=== PATIENT | female | born 1945 | race Caucasian/White ===

== ENCOUNTER 2020-02-03 14:15 | Outpatient (RCR) | payer MEDICARE, SELFPAY ==
--- NOTE | 2019-12-31 15:47 | PTOPEVAL ---
Thank you for referring this patient to [facility]. Please review, sign, date and return this plan of care SUSHANT. I agree with and certify that the following plan of care is medically necessary. Referring Physician Date Attending Provider: Elaine Ba, HUMANITIES PROFESSOR-C Evaluation Hx Back Pain Yes Hx Spinal Surgery Yes: spinal fusion; pain pump placed/removed Pain History Has Past Pain Affected Your Daily Life Yes History of Pain Pump Yes: removed Evaluation Information Diagnosis generalized weakness Subjective Information Suri is here today following Query Text:As Reported By Patient/ placement of a pain pump in 08/2019 Family By that evening her legs had gone numb. They took the pain pump out, but of use her legs has not returned. Prior to this incident she was 100% independent. 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 she can propel the w/c, but is faster with assist. she dresses independently and bathes independently. 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 Prior Level of Function Activity Level (Last 3 Months) Hand Dominance Right Cooking Yes Cleaning Yes Laundry Yes Shopping Yes Driving Yes Home Setting Home Type House,Single Level Environmental Barriers Ramp Living Situation With Spouse Support Available Local Family Support Cargiver Responsibilities Comment prior to incident, Suri was 100% independent and driving. Mobility Assistive Devices (Used Last 3 Wheelchair, Manual Months) Bathroom Environment Shower, Curtain Bathing Equipment Grab Bars,Tub Seat With Back Pain Scale Spine, Lumbar Reported Pain Level 4 Pain Description Aching Current Pain Intensity 4 Lowest Pain Intensity 2 Greatest Pain Intensity 7 Other Pain Aggravating Factors alot of moving, transfering in/out of wheelchair Lower Extremity Range of Motion General Lower Extremity Range of Motion: WNL/Left,WNL/Right Lower Extremity Muscle Strength Testing Hip Strength Bilateral Hip Flexion Strength 4- Good - Hip Extension Strength 3+ Fair + Hip Abduction Strength 3- Fair - Knee Strength Bilateral Knee Flexion Strength 3+ Fair + Knee Extension Strength 3 Fair Ankle Strength Bilateral Ankle Dorsiflexion Strength 3+ Fair + Ankle Plantarflexion Strength 4- Go
--- NOTE | 2020-01-27 17:18 | PTOPEVAL ---
PHYSICAL THERAPY PLAN OF CARE UPDATE AND PROGRESS REPORT Thank you for referring this patient to [facility]. I recommend continuing physical therapy with Suri with plan to participate in 1x/week land and 1x/week pool therapy for 4 weeks. Please review, sign, date and return this plan of care SUSHANT. I agree with and certify that the following plan of care is medically necessary. Referring Physician Date Attending Provider: Elaine Ba, ACCOUNT SUPPORT ANALYST-C Re-evaluation Diagnosis generalized weakness Cause insidious Subjective Information Suri reports today that she Query Text:As Reported By Patient/ does not feel like anything Family has really changed, but also describes that she had an opportunity to walk with the walker in her house with her following with the wheelchair behind her. She feels as though she has a balance problem and that her legs don't always feel weak but she feels like she will lose her balance. Feels as though over all her back is feeling much better, although she did have a really bad night. Reported Pain Level 5 Pain Description Aching,Soreness Pain Frequency Chronic Pain Aggravating Factors Weight Bearing/Standing Hip Strength Bilateral Hip Flexion Strength 4 Good Hip Extension Strength 3+ Fair + Hip Abduction Strength 3- Fair - Knee Strength Right Knee Flexion Strength 4- Good - Knee Extension Strength 4- Good - Left Knee Flexion Strength 3+ Fair + Knee Extension Strength 4 Good Ankle Strength Bilateral Ankle Dorsiflexion Strength 3+ Fair + Ankle Plantarflexion Strength 4- Good - Balance Assessment Balance Screen Static Sit 30 Seconds without UE Support Yes - Eyes Open Static Sit 30 Seconds without UE Support Yes - Eyes Closed Static Sit with Nudge without UE Support Yes Dynamic Turn to Look Over Both Shoulders Yes without UE Support Dynamic Bend Forward to Touch Floor Yes without UE Support Static Stand 30 Seconds without UE Yes Support - Eyes Open Static Stand 10 Seconds without UE No Support - Eyes Closed Static Stand with Nudge without UE No Support/Device Dynamic Turn to Look Over Both Shoulders No without UE Support One Full Step Forward/Back without UE No
--- NOTE | 2020-02-10 09:40 | PCPTNOTE ---
PHYSICAL THERAPY DISCHARGE NOTE Attending Provider: Elaine Ba, FELT HAT STEAMER-C Patient:Suri Crews Date of :1945 Suri cancelled her remaining appointments due to COVID-19 precautions. Her last assessment was on 01/27/2020. Her current account will be discharged at this time. If she requires further care in the future, we will be happy to work with her again. The goals have been partially achieved. Thank you for referring this patient to [facility]. Please review, sign, date and return this discharge summary SUSHANT. I have been updated about the patient's current status and I agree with discharge from the above service at this time. Referring Physician Date
== END 2020-02-10 13:53 | disposition home or self-care (01) ==
LOC: ANHPT 14:15
PROVIDERS: PCP Family Medicine; Visit Provider Nurse Practitioner Family
DX: M62.81 Muscle weakness (generalized) (principal)
CPT/HCPCS: 97110; 97113; 97140; 97162

== ENCOUNTER 2020-07-08 11:15 | Outpatient (RCR) | payer MEDICARE, SELFPAY ==
--- NOTE | 2020-05-27 10:22 | PTOPEVAL ---
PHYSICAL THERAPY EVALUATION AND PLAN OF CARE Thank you for referring Suri Crews to [facility]. I recommend Suri participate in physical therapy 2x/week for 4-8weeks. Please review, sign, date and return this plan of care SUSHANT. I agree with and certify that the following plan of care is medically necessary. Referring Physician Date Attending Provider: Blu Hunter PA-C Evaluation Diagnosis unsteadiness on feet Onset 08/2019 Cause insidious Subjective Information Suri has returned to therapy Query Text:As Reported By Patient/ after a hiatus due to COVID-19. Family she reports worse pain and she reports that her mobility is getting worse. States that when pain is too bad, she takes a pain pill. States that the she does not do any exercises or stretches. Reports that her legs are kind of numb -main pain is in her back. Pain Assessment Timing of Pain Assessment Timing of Pain Assessment Assessment Pain Scale Pain Scale Used Numeric (1 - 10) Self Report Pain Assessment Back Reported Pain Level 6 Pain Description Aching Pain Frequency Chronic,Continuous Lowest Pain Intensity 4 Greatest Pain Intensity 8 Pain Aggravating Factors Other Pain Aggravating Factors Other Pain Aggravating Factors getting into and out of car Pain Behaviors None Pain Relief Interventions Used By Medication Patient Pain Score Pain Score 6: Self Report Lower Extremity Muscle Strength Testing Hip Strength Bilateral Hip Flexion Strength 4 Good Knee Strength Bilateral Knee Flexion Strength 4+ Good + Knee Extension Strength 3+ Fair + Balance Assessment Bush Balance Assessment Sitting to Standing Independent w/Hands Unsupported Stance Ability 30 seconds Sitting Unsupported, Feet on Floor Safely- 2 minutes Standing to Sitting Assist, Control w/Hands Transfer Ability Safely, Hand Use Unsupported Stance- Eyes Closed 3 seconds Unsupported Stance- Feet Together Supervision to maintain Reaching Forward while Standing Safely, 2 inches mail delivery supervisor Object From Floor Requires Assistance Look Behind Shoulder - Standing Supervision w/Turning Turning 360 Degrees Requires Assistance Unsupported Stance, Alternating Feet on Assist to Prevent Fall Stair Unsupported Tandem Stance Assist to Step-15 seconds Unilateral Leg Stance Unable,assist to not
--- NOTE | 2020-06-12 15:04 | PCPTNOTE ---
Patient called & cancelled scheduled appointment this date due to note feeling well.
--- NOTE | 2020-06-26 13:21 | PTOPEVAL ---
PHYSICAL THERAPY PLAN OF CARE UPDATE AND PROGRESS REPORT Thank you for referring Suri Crews to [facility] Suri is scheduled to continue 2x/week for 4 weeks. Please review, sign, date and return this plan of care SUSHANT. I agree with and certify that the following plan of care is medically necessary. Referring Physician Date Attending Provider: Blu Hunter PA-C Progress Diagnosis unsteadiness on feet Onset 08/2019 Cause insidious Subjective Information Suri states that she is Query Text:As Reported By Patient/ feeling better today, no Family specific reason. Does her exercises sporadically. Self Report Pain Assessment Back Reported Pain Level 4 Pain Description Aching Pain Frequency Chronic,Continuous Pain Behaviors None Hip Strength Bilateral Hip Flexion Strength 4+ Good + Knee Strength Bilateral Knee Flexion Strength 4+ Good + Knee Extension Strength 4- Good - Balance Assessment [facility] Balance Evaluation Total Score 29/56 Comments 1month ago = 24/56points Timed Up and Go Test (TUG) (Seconds) 21 Assistive Devices Walker, Wheeled Comments 1 month ago: 27seconds 5 Time Sit to Stand Time in Seconds 18.05 5 Time Sit to Stand Comments with armrests Query Text:Normative Data: If Greater Than 15 Seconds, 74% Increase Risk for Recurrent Falls Gait Assessment Total Distance Walked (feet) 256 2 Minute Walk Gait Speed Score 2.13ft/sec Number of Breaks Required 0 2 Minute Walk Test Comments 1month ago: 113 in 1min 16seconds PT Clinical Summary Suri is a 74 yo female participating in physical therapy for 4weeks with impaired balance and endurance following spinal fusion. She presents today with increase in her balance tests and endurance tests. She demonstrates mild strength increases to MMT. I recommend participating in physical therapy 2x/week for 4 more weeks. PT Services Indicated Yes Rehabilitation Potential Good Patient/Caregiver's Personal Goals for optimal goal is to decrease Rehabilitation pain, but stated that being able to walk with walker
--- NOTE | 2020-07-06 13:59 | PCPTNOTE ---
Patient called & cancelled scheduled appointment this date due to patient not feeling well.
--- NOTE | 2020-07-06 14:00 | PCPTNOTE ---
LATE NOTE: Patient called & cancelled scheduled appointments on 06/29 and 07/03 stating she is unable to attend these appointments.
--- NOTE | 2020-07-13 10:50 | PCPTNOTE ---
Patient called & cancelled scheduled appointments for this week. Stated unsure if she wants to continue therapy session due to not feeling well, sick.
--- NOTE | 2020-07-16 18:11 | PCPTNOTE ---
PHYSICAL THERAPY DISCHARGE NOTE Attending Provider: Blu Hunter PA-C Patient:Suri Crews Date of :1945 Suri called and canelled her remaining appointments. No specific reason provided. She will be discharged at this time. Patient?s initial visit was on 05/27/2020 and had a total of 9 visits. The goals have been partially met. Thank you for referring this patient to [facility]. Please review, sign, date and return this discharge summary SUSHANT. I have been updated about the patient's current status and I agree with discharge from the above service at this time. Referring Physician Date
== END 2020-07-21 10:32 | disposition home or self-care (01) ==
LOC: ANHPT 11:15
PROVIDERS: PCP Family Medicine; Visit Provider Physician Assistant
DX: R26.81 Unsteadiness on feet (principal)
CPT/HCPCS: 97110; 97140; 97162

== ENCOUNTER 2020-08-28 09:22 | Outpatient (CLI) | payer MEDICARE, SELFPAY ==
--- NOTE | ~2020-08-28 | NM_ITS ---
EXAMINATION: NM luciano stress w perfusion DATE: 08/28/2020 12:01 INDICATION: Chest pain. TECHNIQUE: Rest images were obtained following intravenous administration of 10.2 mCi Tc99m tetrofosm in (Myoview). The patient was infused intravenously with Lexiscan (regadenoson). Then, 30.2 mCi Tc99m tetrofosmin (Myoview) was administered intravenously, and stress images were obtained. Data was gris nstructed into short axis and horizontal and vertical long axis SPECT images. Gated SPECT images were also obtained. COMPARISON: Chest CT 07/17/2015 FINDINGS: There is no definite reversible or fixed perfusion abnormality to suggest ischemia or infar ction. There is no segmental wall motion abnormality. Left ventricular ejection fraction measures 6 2%. IMPRESSION: 1. No definite ischemia or infarct. 2. Normal left ventricular ejection fraction measuring 62%. Reviewed, dictated and finalized at location B.
--- NOTE | 2020-08-28 09:47 | EST_ITS ---
Patient Info Name: Suri Crews Age: 74 years : 1945 Gender: Female Ht: 64 in Wt: 200 lbs BSA: 2.06 m2 Exam Date: 08/28/2020 10:47 AM Exam Location: [facility] Stress Patient Status: Outpatient Admit Date: 08/28/2020 Staff Ordering Physician: Blu Hunter PA-C Attending Provider: Blu Hunter PA-C Exercise Technologist: Angi Akers RDCS Exercise Physician: Josias Ventura DO Exam Type: CA stress luciano w NM Study Info Indications R07.89 - Other chest pain A regadenoson stress test was performed. Summary 1. 1. Negative lexiscan stress test for ischemic ST changes by ECG criteria. 2. 2. Stable hemodynamics throughout the test. 3. 3. Nuclear scan to follow and will be reported separately. Please correlate with it. 4. 4. Patient informed of the above results. Protocol: Lexiscan Stress ECG Details Stage: REST Duration (min): 6 min : 22 sec HR (bpm): 87 SBP (mmHg): 120 DBP (mmHg): 82 Stage: REST Duration (min): 12 min : 8 sec HR (bpm): 87 SBP (mmHg): 120 DBP (mmHg): 82 Stage: STAGE 1 Duration (min): 0 min : 59 sec HR (bpm): 92 SBP (mmHg): 129 DBP (mmHg): 84 Stage: RECOVERY Duration (min): 1 min : 0 sec HR (bpm): 100 SBP (mmHg): 117 DBP (mmHg): 80 Stage: RECOVERY Duration (min): 2 min : 0 sec HR (bpm): 93 SBP (mmHg): 117 DBP (mmHg): 80 Stage: RECOVERY Duration (min): 3 min : 0 sec HR (bpm): 92 SBP (mmHg): 119 DBP (mmHg): 79 Stage: RECOVERY Duration (min): 3 min : 10 sec HR (bpm): 83 SBP (mmHg): 119 DBP (mmHg): 79 Rest HR: 87 bpm Peak HR: 102 bpm Rest Sys BP: 120 mmHg Peak Sys BP: 129 mmHg Max Pred HR: 147 bpm % Max Pred HR: 69 % Target HR: 125 bpm Max RPP: 13,158 bpm*mmHg Termination Reason: Completed protocol Cardiac Symptoms: Shortness of breath Total Time: 1 min : 0 sec Rest Bassett BP: 82 mmHg Peak Bassett BP: 84 mmHg Total Dose: 0.4 mg Resting ECG Sinus rhythm, low voltage in diffuse leads, IRBBB, anteroseptal infarct and inferior infarct, age indeterminate. Stress ECG No ST changes. Arrhythmias None. Report Signatures
== END 2020-08-28 09:23 | disposition home or self-care (01) ==
LOC: ANHCARD 09:28
PROVIDERS: PCP Family Medicine; Visit Provider Physician Assistant
DX: R07.89 Other chest pain (principal)
CPT/HCPCS: 78452; 93017; A9502; J2785

== ENCOUNTER → 2022-01-27 13:35 | Outpatient (CLI) | payer MEDICARE, SELFPAY ==
--- NOTE | ~2022-01-27 | XR_ITS ---
EXAMINATION: XR wrist LT w scaphoid DATE: 01/27/2022 14:01 INDICATION: Left wrist pain. TECHNIQUE: 5 views of left wrist were obtained. COMPARISON: None. 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 There is severe osteoarthritis of radioscaphoid joint and lunate-capitate and lunate-hamate joints. There is mild os teoarthritis of triscaphe joint and severe osteoarthritis of first carpometacarpal joint. There is mi ld osteoarthritis of second metacarpophalangeal joint. There are punctate calcifications at the radio carpal compartment. IMPRESSION: 1. 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 Reviewed, dictated and finalized at location A. NE BOSS
== END ==
PROVIDERS: PCP Family Medicine; Visit Provider Physician Assistant Medical
DX: M25.532 Pain in left wrist (principal); M19.032 Primary osteoarthritis, left wrist; M25.832 Other specified joint disorders, left wrist
CPT/HCPCS: 73110

== ENCOUNTER 2022-05-16 12:33 | Outpatient (CLI) | payer MEDICARE, SELFPAY ==
--- NOTE | ~2022-05-16 | XR_ITS ---
XR chest 2V DATE: 05/16/2022 13:14 INDICATION: Cough TECHNIQUE: AP and lateral views COMPARISON: 09/2016 PA and lateral chest FINDINGS: Normal heart size. Mild atelectasis in the lower lung zones. Chronic elevation of the right leaf of the diaphragm. Normal heart size. Mild aortic tortuosity. No pulmonary vascular congestion or pleural effusion or pn eumothorax. No hilar or mediastinal enlargement. Again noted is anterior mid and lower cervical spine surgical fusion and right glenohumeral arthropla sty. Old healed fracture deformity of the midshaft of the left clavicle. Osteophytic change of the le ft glenohumeral joint. Probable partial resection of the lateral aspect of the left clavicle. Status post posterior lower thoracic and lumbar surgical fusion with 2 sets of bilateral pedicle scre ws and rods from T10 into the lumbar area, new since 09/23/2016 Status post cholecystectomy. IMPRESSION: Mild atelectasis in the lower lung zones Status post anterior cervical spine surgical fusion at right glenohumeral arthroplasty Status post posterior lower thoracic and lumbar surgical fusion, new since 09/23/2016 Status post cholecystectomy Reviewed, dictated and finalized at location B. IMPRESSION: Mild atelectasis in the lower lung zones Status post anterior cervical spine surgical fusion at right glenohumeral arthr oplasty Status post posterior lower thoracic and lumbar surgical fusion, new since 09/23 Status post cholecystectomy
== END 2022-05-16 12:34 | disposition home or self-care (01) ==
PROVIDERS: PCP Family Medicine; Visit Provider Physician Assistant
DX: R05.9 Cough, unspecified (principal); J98.11 Atelectasis; Z98.1 Arthrodesis status; Z90.49 Acquired absence of other specified parts of digestive tract
CPT/HCPCS: 71046

== ENCOUNTER 2022-08-24 11:00 | Outpatient (RCR) | payer MEDICARE, SELFPAY ==
--- NOTE | 2022-07-22 11:46 | PTOPEVAL1 ---
Evaluation Information Assessment Status Evaluation Diagnosis dizziness Onset May 2022 Subjective Information Dizziness started a few months ago and has gotten worse; Reported Pain Level Pain Score 0: Self Report Additional Pain Score Comments area over R religion, behind eye; poking and some puss/watering from eye; little throbbing; range 0-2/10 Assessment PT Clinical Summary Suri has the diagnosis of dizziness. She reports onset a few months ago, and has not had vestibular issues in the past. Her history does include risk factors of: multiple meds, fall with hitting her head, issues with ear drum perforation, vision and hearing issues--glasses and hearing aides used, recent infection, R eye watering and allergy issues. With the evaluation, [place] test was positive to the R for anterior/posterior BPPV. Education was provided to pt on vestibular system and BPPV basics. Skilled PT services are indicated for clearing of her BPPV and further testing of her vestibular system as indicated, with education for home exercises and postioning. Plan of Care Interventions Neuro Re-education,Patient/Caregiver Education, Therapeutic Activities,Therapeutic Exercise PT Services Indicated Yes Treatment Frequency and 1-2x/wk for 5 weeks, depending upon the severity Duration of her vestibular s/s These treatments will address the objective and functional deficits as defined above. The patient will be advanced safely and appropriately in order for the patient to progress towards his/her prior level of function. Additional exercises will be introduced and as well as a comprehensive home exercise program upon discharge, if needed, ?to ensure carryover of functional gains achieved in the clinic. This treatment plan has been reviewed and agreement upon by the patient.
--- NOTE | 2022-08-24 11:35 | PTOPDC ---
Assessment and note entered by Rebecca Costello, PT Evaluation Information Assessment Status Discharge Diagnosis dizziness Onset May 2022 Subjective Information have only had about one dizzy spell per week, when lying in bed and roll over in bed; neck is better, is doing good; Reported Pain Level Pain Score Self Report Additional Pain Score Comments no neck pain or headaches lately; does have pain in her back and fatigued from not sleeping well last night; Assessment PT Clinical Summary Suri has received 5 PT sessions for vestibular therapy/dizziness. She has improved with reporting only having dizziness about 1x/week when rolling over in bed, lasting about 1 minute. Education completed for cervical stretching and HEP, safety with mobility and dizziness. Discharge PT services. Plan of Care PT Services Indicated No
== END 2022-10-06 13:47 | disposition home or self-care (01) ==
LOC: ANHPT 11:00
PROVIDERS: PCP Emergency Medicine; Referring Provider Emergency Medicine; Visit Provider Emergency Medicine
DX: R42 Dizziness and giddiness (principal)
CPT/HCPCS: 97161; 97530

== ENCOUNTER 2022-12-15 00:20 | Day surgery (SDC) | payer MEDICARE, SELFPAY ==
[2022-11-28 14:58] VITALS: BMI 32.7
[2022-12-15 08:46] VITALS: BP 131/88; PULSE 91; RESP 17; TEMP 36.4; O2SAT 97; BMI 31.5
[2022-12-15] MEDS: LACTATED RINGERS 1,000 ML 150 ML IV CONT (08:54)
--- NOTE | 2022-12-15 09:22 | WPDANESEPPF ---
Anes - Initial Pre Proc Eval Procedure: Operation Date: 12/15/22 09:30 Proposed Procedures p Esophagogastroduodenoscopy - Chris Shultz MD Date/Time: 12/15/22 09:22 Surgeon: Chris Shultz MD Pre Op Diagnosis: epigastric pain Patient Data Age: 77 Gender: F Height: 1.63 m Weight: 83.4 kg Last Vital Signs Temp 97.6 F 12/15/22 08:46 Pulse 91 12/15/22 08:46 Resp 17 12/15/22 08:46 BP 131/88 12/15/22 08:46 Pulse Ox 97 12/15/22 08:46 O2 Del Method Room Air 12/15/22 08:46 Allergies Allergy/AdvReac Type Severity Reaction Status Date / Time No Known Allergies Allergy Verified 12/15/22 08:44 Home Medications Medication Instructions Recorded Confirmed Type cholecalciferol (vitamin D3) 50 50 mcg PO DAILY 08/09/22 12/15/22 History mcg (2,000 unit) capsule ginkgo biloba leaf extract 60 mg 60 mg PO BID 08/09/22 12/15/22 History capsule clonazepam 0.5 mg tablet 0.5 mg PO QHS #90 tabs 11/15/22 12/15/22 Rx allopurinol 300 mg tablet 300 mg PO DAILY 11/28/22 12/15/22 History amlodipine 5 mg tablet 5 mg PO DAILY 11/28/22 12/15/22 History baclofen 10 mg tablet 10 mg PO HS 11/28/22 12/15/22 History duloxetine 60 mg capsule,delayed 60 mg PO DAILY 11/28/22 12/15/22 History release gabapentin 300 mg capsule 600 mg PO HS 11/28/22 12/15/22 History hydrochlorothiazide 50 mg tablet 50 mg PO DAILY 11/28/22 12/15/22 History melatonin 10 mg tablet 10 mg PO HS 11/28/22 12/15/22 History multivit with 1 tablet PO DAILY 11/28/22 12/15/22 History ghcinmns-ntme-DH-lutein 8 mg iron-400 mcg-300 mcg tablet (Centrum Silver Women) omega-3 fatty acids-vitamin E 1 cap PO DAILY 11/28/22 12/15/22 History 1,000 mg capsule simvastatin 40 mg tablet 40 mg PO DAILY 11/28/22 12/15/22 History telmisartan 80 mg tablet 80 mg PO DAILY 11/28/22 12/15/22 History trazodone 50 mg tablet 50 mg PO HS 11/28/22 12/15/22 History vitamin B complex 1 tablet PO DAILY 11/28/22 12/15/22 History Patient hx anesthesia problems: none Family hx anesthesia problems: none Results Review: All pre-operative results and documents have been reviewed as part of the pre-operative evaluation. PMFSH Past Medical History Medical History Black stool Family History Family History Mother Family history of elevated blood lipids Other Family history of cardiovascular disease Hypertension Social History Social History (Updated 11/08/22 @ 15:08 by Monique Hopson MA) Smoking status: Former smoker Tobacco type: cigarettes Alcohol intake: never Substance use type: does not use Lack of Transportation: No Lack of Food: Never True Current Housing: I Have Housing Concerned About Future Housing: No Difficulty Paying Gas/Electric Bills: No Difficulty Paying for Meds: No Currently Unemployed: No Education: High School Diploma/GED Difficulty w/ Childcare or Family Care: No Living arrangements: with family Spiritual care concerns: No Anes - Eval Final PreProcedure Day of Procedure 12/15/22 09:22 Patient weight: obese Heart: regular rate and rhythm Lungs: clear to auscultation Airway: Mallampati scale class II Neurological: alert and oriented Last oral intake: >/= 8 hours ASA classification: III Emergent: no Anesthetic plan: proceed Anesthesia type and monitoring: general GIVS and standard monitoring Results Review: All pre-operative results and documents have been reviewed as part of the pre-operative evaluation. Informed Consent: The patient's anesthetic plan and its attendant risks and benefits were discussed with the patient/family/POA. Questions were solicited and answers provided to the satisfaction of the patient/family/POA.
--- NOTE | 2022-12-15 09:23 | PM.HPGS ---
History of Present Illness History of Present Illness Consent: Risks, benefits, and alternatives have been discussed and questions answered. Patient agrees to proceed with procedure. Chief complaint: epigastric pain Narrative: Suri Crews is a 77 year old female Presents for EGD. Patient has a history of spinal cord injury several years ago. She reports partial paresis to the lower extremities. Patient reports for quite some time has epigastric discomfort in the upper portion of her abdomen she states a gurgles. Sometimes she feel nauseated and bloated. She has difficulty describing the sensation. She does report poor bowel habits but does not correlate this with her discomfort. She states the abdominal discomfort comes and goes intermittently. Not particularly related to diet nor intake as well. An EGD is requested to assess more thoroughly. Review of Systems Review of Systems: Review of systems noncontributory. [facility] Past Medical History Medical History Black stool Family History Family History Mother Family history of elevated blood lipids Other Family history of cardiovascular disease Hypertension Social History Social History (Updated 11/08/22 @ 15:08 by Monique Hopson MA) Smoking status: Former smoker Tobacco type: cigarettes Alcohol intake: never Substance use type: does not use Lack of Transportation: No Lack of Food: Never True Current Housing: I Have Housing Concerned About Future Housing: No Difficulty Paying Gas/Electric Bills: No Difficulty Paying for Meds: No Currently Unemployed: No Education: High School Diploma/GED Difficulty w/ Childcare or Family Care: No Living arrangements: with family Spiritual care concerns: No Meds Home Medications and Allergies Home Medications Medication Instructions Recorded Confirmed Type cholecalciferol (vitamin D3) 50 50 mcg PO DAILY 08/09/22 12/15/22 History mcg (2,000 unit) capsule ginkgo biloba leaf extract 60 mg 60 mg PO BID 08/09/22 12/15/22 History capsule clonazepam 0.5 mg tablet 0.5 mg PO QHS #90 tabs 11/15/22 12/15/22 Rx allopurinol 300 mg tablet 300 mg PO DAILY 11/28/22 12/15/22 History amlodipine 5 mg tablet 5 mg PO DAILY 11/28/22 12/15/22 History baclofen 10 mg tablet 10 mg PO HS 11/28/22 12/15/22 History duloxetine 60 mg capsule,delayed 60 mg PO DAILY 11/28/22 12/15/22 History release gabapentin 300 mg capsule 600 mg PO HS 11/28/22 12/15/22 History hydrochlorothiazide 50 mg tablet 50 mg PO DAILY 11/28/22 12/15/22 History melatonin 10 mg tablet 10 mg PO HS 11/28/22 12/15/22 History multivit with 1 tablet PO DAILY 11/28/22 12/15/22 History hxpmpbxi-noxv-BI-lutein 8 mg iron-400 mcg-300 mcg tablet (Centrum Silver Women) omega-3 fatty acids-vitamin E 1 cap PO DAILY 11/28/22 12/15/22 History 1,000 mg capsule simvastatin 40 mg tablet 40 mg PO DAILY 11/28/22 12/15/22 History telmisartan 80 mg tablet 80 mg PO DAILY 11/28/22 12/15/22 History trazodone 50 mg tablet 50 mg PO HS 11/28/22 12/15/22 History vitamin B complex 1 tablet PO DAILY 11/28/22 12/15/22 History Allergies Allergy/AdvReac Type Severity Reaction Status Date / Time No Known Allergies Allergy Verified 12/15/22 08:44 Vital Signs Vital Signs - 24 hr 12/15/22 08:46 Temperature 97.6 F Pulse Rate 91 Respiratory Rate 17 Blood Pressure 131/88 Pulse Oximetry 97 Oxygen Delivery Room Air Exam Narrative: Physical exam reveals patient to be alert. Vital signs stable. HEENT exam is unremarkable. Patient is anicteric. Lungs are clear to auscultation and percussion. Heart is without murmur or extra sounds. Abdomen bowel sounds present soft nontender with no organomegaly. She has weakness in her lower extremities. Assessment and Plan Assessment and plan (1) Epigastric pain: Code(s): R10.13
[2022-12-15 09:46] VITALS: BP 116/91; PULSE 88; RESP 20; O2SAT 99
[2022-12-15 09:56] VITALS: BP 112/68; PULSE 80; RESP 19; O2SAT 100
[2022-12-15 10:06] VITALS: BP 127/75; PULSE 76; RESP 21; O2SAT 96
== END 2022-12-15 10:20 | disposition home or self-care (01) ==
PROVIDERS: PCP Emergency Medicine; Visit Provider Internal Medicine Gastroenterology
PROC: 0DJ08ZZ Inspection of Upper Intestinal Tract, Via Natural or Artificial Opening Endoscopic (ICD-10-PCS; CPT 43235; principal; 2022-12-15 09:30)
DX: R10.13 Epigastric pain (principal); Q39.4 Esophageal web; R53.1 Weakness; E11.9 Type 2 diabetes mellitus without complications; Z87.891 Personal history of nicotine dependence
CPT/HCPCS: 43239; 43450; 87081; J2704; J7120

== ENCOUNTER 2023-01-21 14:44 | Outpatient (CLI) | payer MEDICARE, SELFPAY ==
--- NOTE | ~2023-01-21 | XR_ITS ---
EXAMINATION: XR shoulder LT min 2V INDICATION: Left shoulder pain TECHNIQUE: Four views of the left shoulder are submitted. COMPARISON: None FINDINGS: Changes of healed left clavicle fracture are noted. No acute fracture is identified. There is moderate to severe osteoarthritis of the glenohumeral joint. There is moderate osteoarthritis of t he acromioclavicular joint. There are partially imaged changes of spinal fusion. Surgical clips in th e right upper quadrant are likely from prior cholecystectomy. Soft tissues are unremarkable. IMPRESSION: 1. Osteoarthritis without acute osseous abnormality. Reviewed, dictated and finalized at location F. [employer]
== END 2023-01-21 14:45 | disposition home or self-care (01) ==
LOC: ANHIMG 14:47
PROVIDERS: PCP Emergency Medicine; Visit Provider Emergency Medicine
DX: M19.012 Primary osteoarthritis, left shoulder (principal)
CPT/HCPCS: 73030